=== PATIENT | male | born 1980 | race African-American/Black ===

== ENCOUNTER 2018-05-18 11:45 | Emergency (ER) | payer OTHER ==
[2018-05-18 12:13] LABS: Clarity Clear (Clear)
[2018-05-18 12:14] LABS: Bilirubin Negative (Negative); Blood, Urine Large (Negative); Glucose, Urine (Dipstick) Negative (Negative); Leukocyte Negative (Negative); Nitrite Negative (Negative); Protein, Urine (Dipstick) Negative (Neg-Trace); Specific Gravity, Urine 1.015 (1.005-1.030); Urobilinogen 0.2 mg/dL (0.2-1.0)
[2018-05-18 12:17] LABS: Bacteria/HPF Rare-Few HPF (None Seen); Squamous Epithelial 0-3 HPF (0-3); WBC/HPF 0-3 HPF (0-3)
[2018-05-18] MEDS ORDERED: Azithromycin 250 MG TAB ONE (12:24)
== END 2018-05-18 12:27 | disposition home or self-care (01) ==
LOC: BURERS 11:45
DX: R31.9 Hematuria, unspecified (principal); F17.210 Nicotine dependence, cigarettes, uncomplicated
CPT/HCPCS: 81003; 81015; 87086; 87491; 87591; 99283

== ENCOUNTER 2022-05-07 09:36 | Outpatient (CLI) | payer BC ==
[2022-05-07] MEDS ORDERED: Iopamidol 370 76% 100 ML VIAL FS ONE (09:37)
== END 2022-05-07 09:37 | disposition home or self-care (01) ==
LOC: BURCT 09:36
PROVIDERS: ATTEND Family Medicine
DX: R31.9 Hematuria, unspecified (principal); N40.0 Benign prostatic hyperplasia without lower urinary tract symptoms; K56.1 Intussusception
CPT/HCPCS: 74178; Q9967